=== PATIENT | female | born 1975 | race Caucasian/White ===

== ENCOUNTER 2017-02-10 13:03 | Emergency (ER) | payer MEDICAID, OTHER ==
[~2017-02-10] VITALS: Ht 157.5 cm; Wt 68.0 kg
[~2017-02-10 13:03] MED LIST: VEN75XRT PO
[2017-02-10 13:11] VITALS: BP 122/85
[2017-02-10 13:38] LABS: Eosinophils # (auto) 0.2 uL; Monocytes # (auto) 0.6 uL; White Blood Cell 9.1 10^3/uL (4.4-10.8)
[2017-02-10 13:39] LABS: Basophils # (auto) 0.2 uL; Eosinophils % (auto) 2.5 % (0.0-7.0); Hematocrit 32.5 % (36.0-46.0); Hemoglobin 10.6 g/dL (12.2-16.2); Lymphocytes % (auto) 33.3 % (10.0-50.0); Mean Corpuscular Hemoglobin 26.7 pg (28.0-32.0); Mean Corpuscular Hgb Conc. 32.7 g/dL (32.0-36.0); Mean Corpuscular Volume 81.7 fL (80.0-100.0); Mean Platelet Volume 7.5 fL (6.9-10.8); Monocytes % (auto) 6.7 % (0.0-12.0); Neutrophils % (auto) 55.5 % (37.0-80.0); Nucleated Red Blood Cells % 0.1 %; Platelet Count (auto) 548 10^3/uL (140-450); Red Cell Distribution Width 15.1 % (11.8-14.3)
[2017-02-10 13:54] LABS: Albumin 3.7 g/dL (3.4-5.0); BUN/Creatinine Ratio 7.2; Bilirubin, Total 0.2 mg/dL (0.2-1.0); Calcium 8.4 mg/dL (8.5-10.1); Potassium 4.1 mmol/L (3.5-5.1); Total Protein 6.9 g/dL (6.4-8.2)
== END 2017-02-10 20:55 | disposition left against medical advice (07) ==
LOC: ER 13:03
DX: R06.7 Sneezing (principal); Z53.21 Procedure and treatment not carried out due to patient leaving prior to being seen by health care provider
CPT/HCPCS: 36415; 80053; 84484; 85025; 93005